=== PATIENT | male | born 1960 | race Caucasian/White ===

== ENCOUNTER 2016-05-13 09:46 | Emergency (ER) | payer OTHER ==
--- NOTE | 2016-05-13 09:53 | EDPHY ---
H & P Time Seen by Provider: 05/13/16 09:52 Constitutional: Initial Vital Signs Temperature (C) 37.0 C 05/13/16 09:52 Heart Rate 105 H 05/13/16 09:52 Respiratory Rate 16 05/13/16 09:52 Blood Pressure 179/114 H 05/13/16 09:52 O2 Sat (%) 94 05/13/16 09:52 O2 Delivery Mode Room Air Allergies/Adverse Reactions: erythromycin base Allergy (Verified 05/13/16 09:52) Home Medications: Medication Instructions Recorded Levothyroxine 05/13/16 Medical Decision Making ED Course/Re-evaluation: CHIEF COMPLAINT: Chest pain, dizziness HISTORY OF PRESENT ILLNESS: The patient is a 55 y/o male arriving via EMS complaining of 2 episodes of acute onset chest pain at 09:00 this morning. He developed "cramping" pain in his upper left chest that lasted for about 10 seconds. Immediately following the pain he felt dizzy, had an elevated heart rate, and felt associated left jaw pain. He sat down for a while and his symptoms seemed to mostly improve. Later while driving he began feeling dizzy, sweating, and the rapid heart rate returned. This episode lasted a few minutes. EMS told him his BP was elevated in 190s systolic and his HR was around 130. The patient experienced tachycardia a few years ago. A subsequent stress test and Holter monitor were normal. He notes he was skiing on a [place] trip for several days recently with no symptoms. He did have a 2nd cup of coffee this morning, which is abnormal for him. He does not have hypertension, hypercholesteremia, or diabetes and is a nonsmoker. His mother of unknown cause age 60. REVIEW OF SYSTEMS: A 10 point review of systems was performed and is negative with the exception of the elements mentioned in the history of present illness. PHYSICAL EXAM: HR, BP, O2 Sat, RR. Temp noted General Appearance: Alert, well hydrated, appropriate, and non-toxic appearing. Head: Atraumatic without scalp tenderness or obvious injury Eyes: Pupils equal, round, reactive to light and accommodation, EOMI, no trauma , no injection. Ears: Clear bilaterally, no perforation, normal landmarks Nose: Atraumatic, no rhinorrhea, clear. Throat: There is no erythema or exudates, no lesions, normal tonsils, mucus membranes moist. Neck: Supple, 2+ carotid upstroke, nontender, no lymphadenopathy. Respiratory: No retractions, no distress, no wheezes, and no accessory muscle use. Lungs are clear to auscultation bilaterally. Cardiovascular: Regular rate and rhythm, no murmurs, rubs, or gallops. Bilateral carotid, radial, dorsalis pedis, and posterior tibial pulses intact. Good capillary refill all extremities. Gastrointestinal: Abdomen is soft, nontender, non-distended, no masses, no rebound, no guarding, no peritoneal signs. Musculoskeletal: Normal active ROM of all extremities, atraumatic. Neurological: Alert, appropriate, and interactive. The patient has normal DTRs and non-focal cranial nerves, motor, sensory, and cerebellar exam. Skin: No rashes, good turgor, no nodules on palpation. Past medical history: Previous tachycardia Past surgical history: Denies Family history: Mother age 60 of unknown cause. Social history: DIAGNOSTICS/PROCEDURES/CRITICAL CARE TIME: The 12 lead EKG was interpreted by myself. Sinus rhythm rate 98. See hard copy and/or "tracemaster" electronic copy for interpretation. DIFFERENTIAL DIAGNOSIS: The differential diagnosis for the patient's chest pain included but was not limited to myocardial ischemia, pulmonary embolus, chest wall pain, pleural inflammation, and pulmonary infectious causes. MEDICAL DECISION MAKING: This is a healthy 55 y/o male presenting to the ED after two short episodes of chest pain, rapid heart rate, dizziness, and diaphoresis this morning. His exam is unremarkable. He has requested minimal work up as possible and states he feels normal at this time. IV established. Labs drawn including BNP, troponin, dimer. Patient placed on baker operator automatic. 1130: Work up is negative. I discussed this with the patient. I recommended following up with a management associate this week. Return precautions given. - Data Points Laboratory Results: 05/13/16 09:45 D-Dimer < 0.27 ug/mLFEU (0.00-0.50) Troponin I < 0.012 ng/mL (0-0.034) NT-Pro-B Natriuret Pep < 11 pg/mL (0-125) Departure - Departure Disposition: Home, Routine, Self-Care Clinical Impression: Chest pain Qualifiers: Chest pain type: other chest pain Qualifier Code: (R07.89) Other chest pain Condition: Good Instructions: Chest Pain (ED) Additional Instructions: Follow up with a management associate in the next 2-3 days. Return to the ED for any worsening of condition. Referrals: [place],. [Primary Care Provider] - As per Instructions Jerome Martínez MD [Medical Doctor] - As per Instructions Report Scribed for: Randall Arteaga Report Scribed by: Cindy Phan Date of Report: 05/13/16 Time of Report: 09:53
[2016-05-13 09:55] VITALS: RESP 16; TEMP 98.6
--- NOTE | 2016-05-13 09:57 | CPEKG ---
Heart Rate: 98 RR Interval: 612 P-R Interval: 164 QRSD Interval: 106 QT Interval: 352 QTC Interval: 450 P [place]: 62 QRS [place]: 53 T Wave [place]: 28 EKG Severity - BORDERLINE ECG - EKG Impression: SINUS RHYTHM EKG Impression: PROBABLE LEFT ATRIAL ABNORMALITY Electronically Signed By: Randall Arteaga 13-May-2016 15:04:56
[2016-05-13 10:40] LABS: TROPONIN I < 0.012 ng/mL (0-0.034)
[2016-05-13 11:35] VITALS: BP 143/85; PULSE 90; O2SAT 97
== END 2016-05-13 11:41 | disposition home or self-care (01) ==
DX: R07.89 Other chest pain (principal)